=== PATIENT | female | born 1970 | race Caucasian/White ===

== ENCOUNTER 2018-10-17 17:51 | Inpatient (IN) | payer OTHER ==
[~2018-10-17] VITALS: Ht 165.1 cm; Wt 16.3 kg
[2018-10-17 17:52] VITALS: BP 123/53
[2018-10-17] MEDS ORDERED: PYRIDIUM100 M1 PO (18:22)
[2018-10-17 18:30] LABS: URINE BILIRUBIN NEGATIVE (Negative); URINE BLOOD TRACE (Negative); URINE CLARITY CLEAR; URINE COLOR YELLOW; URINE GLUCOSE-RANDOM* NEGATIVE (Negative); URINE KETONES NEGATIVE (Negative); URINE LEUKOCYTES-REFLEX 1+ (Negative); URINE NITRITE-REFLEX NEGATIVE (Negative); URINE PROTEIN (DIPSTICK) NEGATIVE (Negative); URINE SPECIFIC GRAVITY <= 1.005 (1.005-1.035); URINE UROBILINOGEN 0.2 E.U./dl (0.2-1.0)
[2018-10-17 18:38] LABS: CASTS None Seen /LPF (None Seen); SQUAMOUS >10 Many /LPF (0-3)
[2018-10-17 18:39] LABS: CRYSTALS None Seen /LPF (None Seen); URINE RBC 0-2 Rare /HPF (0-2); URINE WBC-REFLEX 6-15 Few /HPF (0-5); YEAST-REFLEX Present (None Seen)
[2018-10-17 18:44] LABS: HEMATOCRIT 24.5 % (37.0-47.0); HEMOGLOBIN 7.5 gm/dL (12.0-15.0); MCH 17.8 pg (26.0-34.0); MCHC 30.6 g/dL (28.0-37.0); MCV 58.1 fL (80.0-100.0); PLATELET COUNT 389 thou/uL (150-400); RBC 4.22 mil/uL (4.20-5.00); RDW 19.4 % (10.5-14.5)
[2018-10-17 18:53] LABS: CALCIUM 8.8 mg/dL (8.5-10.1); CREATININE 0.9 mg/dL (0.6-1.0); POTASSIUM 3.4 mmol/L (3.5-5.1)
[2018-10-17 18:59] LABS: ALBUMIN 3.7 g/dL (3.4-5.0); TOTAL PROTEIN 7.1 g/dL (6.4-8.2)
[2018-10-17 19:13] LABS: ABSOLUTE NEUTROPHILS 4.5 thou/uL (1.4-8.2)
[2018-10-17 19:14] LABS: ANISOCYTOSIS 2+; HYPOCHROMASIA 3+; MICROCYTES 3+; OVALOCYTES OCCASIONAL; TARGET CELLS 1+
[2018-10-17 21:14] VITALS: BP 127/63
[2018-10-17 21:31] VITALS: BP 127/63
[2018-10-17 21:40] VITALS: BP 131/65
[2018-10-17] MEDS ORDERED: IBUPROFEN 200200 M1 PO (22:57)
[2018-10-18] VITALS (10 sets, daily range): BP systolic 103–120; BP diastolic 49–71
[2018-10-18 01:17] LABS: HEMATOCRIT 23.7 % (37.0-47.0); HEMOGLOBIN 7.1 gm/dL (12.0-15.0); MCH 17.6 pg (26.0-34.0); MCHC 30.1 g/dL (28.0-37.0); MCV 58.4 fL (80.0-100.0); RBC 4.06 mil/uL (4.20-5.00); RDW 19.2 % (10.5-14.5); WBC 7.4 thou/uL (4.0-11.0)
[2018-10-18 01:23] LABS: OBSERVED RETIC COUNT 1.39 % (0.6-2.6)
[2018-10-18 01:31] LABS: % SATURATION 2 % (20-39); IRON 8 ug/dL (50-170); TIBC 408 ug/dL (250-450)
[2018-10-18 01:32] LABS: CREATININE 0.6 mg/dL (0.6-1.0); POTASSIUM 3.2 mmol/L (3.5-5.1)
[2018-10-18 01:40] LABS: CALCIUM 8.5 mg/dL (8.5-10.1)
[2018-10-18 01:58] LABS: FOLIC ACID 9.8 ng/mL (8.6-58.9)
[2018-10-18 07:59] LABS: HEMATOCRIT 27.5 % (37.0-47.0); HEMOGLOBIN 8.6 gm/dL (12.0-15.0)
[2018-10-18] MEDS ORDERED: IRON325 PO (15:04)
[2018-10-18] MEDS ORDERED: FOLIC ACID1 MG PO (15:04)
[2018-10-18] MEDS ORDERED: VITAMIN B-121000 MC3 PO (15:04)
[2018-10-18] MEDS ORDERED: CEFUROXIME500 MG PO (15:09)
== END 2018-10-18 17:19 | disposition home or self-care (01) | DRG 812 ==
LOC: ER 17:51 → EDBD 17:51 → EROBS 19:59 → 2N 19:59
PROVIDERS: Emergency Medicine; Nurse Practitioner Family; Physician Assistant; ADMIT Hospitalist
PROC: 30233N1 Transfusion of Nonautologous Red Blood Cells into Peripheral Vein, Percutaneous Approach (ICD-10-PCS; principal; 2018-10-18)
DX: D64.9 Anemia, unspecified (principal); N39.0 Urinary tract infection, site not specified; N92.0 Excessive and frequent menstruation with regular cycle; Z79.899 Other long term (current) drug therapy
CPT/HCPCS: 10194